=== PATIENT | female | born 1965 | race Caucasian/White ===

== ENCOUNTER 2019-09-30 09:49 | Outpatient (CLI) | payer BC, SELFPAY ==
[2019-09-30 10:06] LABS: Basophils Absolute Auto 0.05 K/mm3 (0.00-0.10); Basophils Percent Auto 0.5 % (0.0-1.0); Eosinophils Absolute Auto 0.11 K/mm3 (0.02-0.50); Eosinophils Percent Auto 1.1 % (1.0-6.0); Hematocrit 43.7 % (35.0-49.0); Hemoglobin 13.6 g/dL (12.0-15.0); Immature Granulocyte Absolute 0.04 K/mm3 (0.00-0.00); Immature Granulocyte Percent A 0.4 % (0.0-0.0); Lymphocytes Absolute Auto 1.34 K/mm3 (1.10-4.50); Lymphocytes Percent Auto 13.5 % (18.0-42.0); Mean Corpuscular HGB Conc 31.1 g/dL (32.0-36.0); Mean Corpuscular Hemoglobin 28.3 pg (27.0-31.0); Mean Platelet Volume 10.5 fl (9.2-11.8); Monocytes Absolute Auto 0.56 K/mm3 (0.10-0.90); Monocytes Percent Auto 5.6 % (2.0-11.0); Neutrophils Absolute Auto 7.8 K/mm3 (1.7-7.2); Neutrophils Percent Auto 78.9 % (50.0-70.0); Platelet Count Result 270 K/mm3 (150-420); Red Cell Distribution Width 14.3 % (11.6-14.4); White Blood Count 9.9 K/mm3 (4.8-10.8)
[2019-09-30 11:11] LABS: Anion Gap 13 mmol/L (8-16); Blood Urea Nitrogen 12 mg/dL (7-18); Calcium 9.3 mg/dL (8.5-10.1); Carbon Dioxide 24 mmol/L (21-32); Chloride 104 mmol/L (98-108); Estimated Glomerular Filt Rate > 60; Ferritin 239 ng/mL (8-252); Glucose 85 mg/dL (70-99); Iron 41 ug/dL (50-170); Osmolality Calculated 290 mOsm/kg (285-295); Percent Iron Saturation 15 % (12-57); Potassium 4.2 mmol/L (3.5-5.1); Sodium 141 mmol/L (136-145); Vitamin B12 542 pg/mL (193-986)
[2019-10-04 05:50] LABS: Prealbumin 19 mg/dL (17-34)
[2019-10-04 19:25] LABS: Vitamin D 25 Hydroxy 32 ng/mL (30-100)
[2019-10-05 13:27] LABS: Vitamin B1 23 nmol/L (8-30)
== END 2019-09-30 09:50 | disposition home or self-care (01) ==
PROVIDERS: PCP Internal Medicine
DX: E55.9 Vitamin D deficiency, unspecified (principal)
CPT/HCPCS: 36415; 80048; 82306; 82607; 82728; 83540; 83550; 84134; 84425; 85025

== ENCOUNTER 2019-11-24 10:02 | Outpatient (CLI) | payer BC, SELFPAY ==
[2019-11-24] MEDS: ONDANSETRON INJ 4 MG/2 ML VIAL IV PUSH (12:39)
[2019-11-24 12:54] VITALS: BP 124/67; PULSE 59; RESP 14; TEMP 36.5; O2SAT 98
--- NOTE | 2019-11-24 12:55 | PC.NURSE ---
1030 Here for 1 L fluids - Banana bag (see MAR). Patient is is 9 weeks s/p gastric sleeve and hiatial hernia repair. Saw surgeon/gastric MD yesterday and he wanted her to have fluids from being dehydrated. IV fluids administered as ordered. 1230 Patient reports not feeling much better. C/O mild nausea. Discuss all the B vitamins etc in the banana bag that could made her nauseated that there is a order Zofran as needed. Patient would like to have zofran. Zofran 4 mg IVP slowly given. Patient will like to sit in recliner for a little bit.
--- NOTE | 2019-11-24 13:16 | PC.NURSE ---
1315 Reports Carlos help a lot. IV dc'd. Patient safe exit to hospital.
== END 2019-11-24 10:03 | disposition home or self-care (01) ==
PROVIDERS: PCP Internal Medicine
DX: E86.0 Dehydration (principal)
CPT/HCPCS: 96360; 96361; 96374; 96375; J2405; J3411; J7030

== ENCOUNTER 2020-03-06 08:50 | Outpatient (CLI) | payer BC, SELFPAY ==
[2020-03-06 09:11] LABS: Hemoglobin A1C 5.1 % (<5.7)
[2020-03-06 10:22] LABS: Cholesterol 187 mg/dL (0-200); Ferritin 201 ng/mL (8-252); HDL Direct 62 mg/dL (40-60); Iron 49 ug/dL (50-170); LDL Cholesterol Calculated 101 mg/dL (<130); Percent Iron Saturation 18 % (12-57); Triglycerides 120 mg/dL (0-150)
[2020-03-11 12:05] LABS: Prealbumin 19 mg/dL (17-34)
== END 2020-03-06 08:51 | disposition home or self-care (01) ==
LOC: CHSLAB 08:52
PROVIDERS: PCP Internal Medicine
DX: Z98.84 Bariatric surgery status (principal); J44.9 Chronic obstructive pulmonary disease, unspecified; I10 Essential (primary) hypertension; E66.01 Morbid (severe) obesity due to excess calories; R73.03 Prediabetes; G47.33 Obstructive sleep apnea (adult) (pediatric); E55.9 Vitamin D deficiency, unspecified
CPT/HCPCS: 36415; 80061; 82728; 83036; 83540; 83550; 84134

== ENCOUNTER 2020-07-27 13:50 | Outpatient (CLI) | payer BC, SELFPAY ==
--- NOTE | ~2020-07-27 | US_ITS ---
EXAMINATION: US carotid duplex BI EXAM DATE: 07/27/2020 15:02 INDICATION: Left anterior neck pain. TECHNIQUE: Grayscale, color and pulsed Doppler images of the cervical carotid arteries were obtained . The degree of vessel stenosis is placed in one of the following categories: normal, <50% stenosis, 50-69% stenosis, >=70% stenosis but less than near-occlusion, near-occlusion, or occlusion. Note that percent stenosis relative to normal distal artery lumen diameter is indirectly measured from velocit y measurements as described by Pablo, et al. Radiology 2003; 229:340-346. There is no prior study fo r comparison. FINDINGS: No carotid dissection flap identified. RIGHT SIDE: Right common carotid artery peak systolic velocity (PSV in cm/s): 59 Right bulb/internal carotid artery peak systolic velocity (PSV in cm/s): 74 Right internal carotid artery end diastolic velocity (EDV in cm/s): 31 Right ICA/CCA peak systolic ratio: 1.2 Right external carotid artery peak systolic velocity (PSV in cm/s): 42 Right vertebral artery antegrade flow: yes There is mild carotid bulb plaque. Velocity and Doppler waveforms in the common and internal carotid arteries is normal. LEFT SIDE: Left common carotid artery peak systolic velocity (PSV in cm/s): 71 Left bulb/internal carotid artery peak systolic velocity (PSV in cm/s): 71 Left internal carotid artery end diastolic velocity (EDV in cm/s): 24 Left ICA/CCA peak systolic ratio: 1.0 Left external carotid artery peak systolic velocity (PSV in cm/s): 34 Left vertebral artery antegrade flow: yes There is mild carotid bulb plaque. Velocity and Doppler waveforms in the common and internal carotid arteries is normal. IMPRESSION: 1. Less than 50 percent stenosis in the right internal carotid artery. 2. Less than 50 percent stenosis in the left internal carotid artery. 3. No carotid dissection flap identified. > Reviewed, dictated and finalized at location B.
== END 2020-07-27 13:51 | disposition home or self-care (01) ==
LOC: CHSIMG 13:54
PROVIDERS: PCP Internal Medicine; Visit Provider Internal Medicine
DX: M54.2 Cervicalgia (principal)
CPT/HCPCS: 93880

== ENCOUNTER 2021-09-16 12:29 | Outpatient (CLI) | payer BC, SELFPAY ==
[2021-09-16 14:02] LABS: Ferritin 144 ng/mL (8-252); Folic Acid 4.6 ng/mL (8.6->20); Iron 36 ug/dL (50-170); Percent Iron Saturation 13 % (12-57)
[2021-09-19 20:17] LABS: Prealbumin 20 mg/dL (17-34)
[2021-09-20 06:49] LABS: Vitamin B1 7 nmol/L (8-30)
== END 2021-09-16 12:30 | disposition home or self-care (01) ==
LOC: CHSLAB 12:35
PROVIDERS: PCP Internal Medicine
DX: Z98.84 Bariatric surgery status (principal); K21.9 Gastro-esophageal reflux disease without esophagitis; E66.01 Morbid (severe) obesity due to excess calories; R73.03 Prediabetes; E55.9 Vitamin D deficiency, unspecified
CPT/HCPCS: 36415; 82525; 82728; 82746; 83540; 83550; 84134; 84425

== ENCOUNTER 2022-02-19 17:34 | Outpatient (CLI) | payer BC, SELFPAY ==
--- NOTE | ~2022-02-19 | XR_ITS ---
EXAMINATION: XR lumbar spine 2-3V DATE: 02/19/2022 17:55 INDICATION: Low back pain TECHNIQUE: Anteroposterior and lateral views of the lumbar spine, and cone-down lateral view of the l umbosacral junction were obtained. COMPARISON: 03/12/2015 FINDINGS: There are 3 mm of anterolisthesis of L4 on L5, new since the comparison examination. Alignm ent is otherwise maintained. There is mild loss of vertebral body height at L5, new since the compari son examination. There is mild loss of intervertebral disc space height and L3-4 and L5-S1. The verte bral body heights are maintained. Small degenerative osteophytes project from the anterior endplates of multiple vertebral bodies. There is moderate to severe facet joint osteoarthritis of the lower lum bar spine. Surgical clips in the right upper quadrant are likely from prior cholecystectomy. A surgic al anastomosis is noted in the left upper quadrant. There are phleboliths of the pelvis. IMPRESSION: 1. Mild to moderate lumbar spondylosis with interval worsening since the comparison examination. 2. Mild loss of vertebral body height at L5, new since the comparison examination. Reviewed, dictated and finalized at location L. F BANK EXAMINER IMPRESSION: 1. Mild to moderate lumbar spondylosis with interval worsening since the compar aguilar examination. 2. Mild loss of vertebral body height at L5, new since the comparison examinati on.
== END 2022-02-19 17:35 | disposition home or self-care (01) ==
LOC: CHSIMG 17:36
PROVIDERS: PCP Internal Medicine; Visit Provider Internal Medicine
DX: M54.50 Low back pain, unspecified (principal); M43.06 Spondylolysis, lumbar region
CPT/HCPCS: 72100

== ENCOUNTER 2022-03-01 08:27 | Outpatient (CLI) | payer BC, SELFPAY ==
--- NOTE | ~2022-03-01 | MR_ITS ---
EXAMINATION: MR lumbar spine wo con DATE: 03/01/2022 09:39 INDICATION: Back pain. TECHNIQUE: Magnetic resonance imaging (MRI) of the lumbar spine was performed without intravenous con trast. COMPARISON: Lumbar spine radiographs 02/19/2022 FINDINGS: There is 3 degrees levocurvature of thoracolumbar spine. There is a burst fracture of L5 wi th 1/5 loss of height, retropulsion of bone 3 mm into central spinal canal, and edema-like marrow sig nal intensity. Intervertebral disc heights are normal. The distal spinal cord signal intensity is nor mal. The conus medullaris is at L1. The following disc levels are specifically discussed: L1-L2: There is a central protrusion. There is mild bilateral facet joint osteoarthritis. There is no neural foraminal stenosis. There is mild central canal stenosis. L2-L3: The disc is bulging. There is mild bilateral facet joint osteoarthritis. There is mild bilater al neural foraminal stenosis. There is no central canal stenosis. L3-L4: The disc is bulging. There is moderate bilateral facet joint osteoarthritis. There is mild jayleen ateral neural foraminal stenosis. There is mild central canal stenosis. L4-L5: The disc does not extend beyond the endplate margin. There is severe bilateral facet joint ost eoarthritis. There is mild left neural foraminal stenosis. There is mild central canal stenosis. L5-S1: The disc does not extend beyond the endplate margin. There is ankylosis of the facet joints wi th mild hypertrophy. There is no neural foraminal stenosis. There is no central canal stenosis. IMPRESSION: 1. Subacute L5 burst fracture, stable from 02/19/2022. 2. Mild lumbar spondylosis. Reviewed, dictated and finalized at location A. NIZER
== END 2022-03-01 08:28 | disposition home or self-care (01) ==
LOC: CHSIMG 08:28
PROVIDERS: PCP Internal Medicine; Visit Provider Internal Medicine
DX: M54.50 Low back pain, unspecified (principal); S32.051A Stable burst fracture of fifth lumbar vertebra, initial encounter for closed fracture; M43.06 Spondylolysis, lumbar region
CPT/HCPCS: 72148

== ENCOUNTER 2022-08-11 15:22 | Outpatient (CLI) | payer BC, SELFPAY ==
--- NOTE | ~2022-08-11 | XR_ITS ---
XR knee LT 3V DATE: 08/11/2022 15:53 INDICATION: Left knee pain for one week. No injury. TECHNIQUE: AP, lateral sunrise views COMPARISON: None FINDINGS: There is tricompartment osteophyte is, most severe at the patellofemoral and lateral compar tments. There is [id number] at the lateral compartment. There is periarticular spurring at all 3 co mpartments, particularly severe at the patellofemoral compartment, also prominent at the lateral comp artment. There is osteopenia. No fracture or dislocation, periosteal reaction or bone destruction, radiopaque intra-articular loose body or chondrocalcinosis is noted. Mild suprapatellar knee joint effusion. Mild varus deformity IMPRESSION: Tricompartment osteophytes, particularly severe at the lateral and patellofemoral compart ments Mild knee joint effusion Osteopenia Reviewed, dictated and finalized at location A. IMPRESSION: Tricompartment osteophytes, particularly severe at the lateral and patellofemoral compartments Mild knee joint effusion Osteopenia
== END 2022-08-11 15:23 | disposition home or self-care (01) ==
LOC: CHSIMG 15:25
PROVIDERS: PCP Internal Medicine; Visit Provider Internal Medicine
DX: M25.562 Pain in left knee (principal); M25.762 Osteophyte, left knee; M25.462 Effusion, left knee; M85.862 Other specified disorders of bone density and structure, left lower leg
CPT/HCPCS: 73562

== ENCOUNTER 2024-08-19 12:51 | Outpatient (CLI) | payer OTHER, SELFPAY ==
--- OUTSIDE RECORDS SUMMARY | 2024-08-19 13:00 | XMS_ITS | Encounter Summary ---
Author Organization [facility] Address [facility] [place] [address] Care Team Providers Care Paper Cone Grader Name Role Phone Fernando Snider MD Primary Care Provider [phone] Chauncey Johnson MD Unavailable [phone] Chandu Matthews DO, George V Unavailable [phone] Chandu Matthews DO, George V Unavailable [phone] Encounter Details Date Type Department Care Team (Late st Contact Info) Description 07/17/2018 Abstract [facility] CONVERSION [address] [place] [address] , Generic Conversion, Social History Tobacco Use Types Packs/Day Years Used Date Smoking Tobacco: Never Assessed Comments Unknown Sex and Gender Information Value Date Recorded Sex Assigned at Female 03/03/2024 1:36 PM DRESS CUTTER Legal Sex Female 4:45 PM CDT Gender Identity Not on file Sexual Orientation Not on file documented as of this encounter Plan of Treatment Upcoming Encounters Date Type Department Care Team (Late Contact Info) Description 08/23/2024 9:15 AM CDT Appointment [facility] [address] [place] [address] Kar uYn, PT [address] [place], [place] [id number] Rashi Schofield Jr., DO [address] [place] [address] Reema Alfred PTA 08/25/2024 9:30 AM CDT Appointment [facility] [address] [place] [address] Kar Yun, PT [address] [place] [address] Rashi Schofield Jr., DO [address] [place] [address] 01/17/2025 9:30 AM DRESS CUTTER Office Visit [facility] [place] [address] Chauncey Johnson MD [address] [address] documented as of this encounter Visit Diagnoses Not on filedocumented in this encounter Care Teams Paper Cone Grader Relationship Specialty Start Date End Date Fernando Snider MD [address] [place] [phone] PCP - General INTERNAL MEDICINE 08/04/18 Chauncey Johnson MD [address] [id number] Physician INTERVENTIONAL CARDIOLOGY 01/06/24 Rashi Schofield Jr., DO [address] [place] [address] Physician ORTHOPAEDIC SURGERY 01/08/24 Rashi Schofield Jr., DO [address] [place] [phone] Physician ORTHOPAEDIC SURGERY 01/15/24 documented as of this encounter
--- OUTSIDE RECORDS SUMMARY | 2024-08-19 13:01 | XMS_ITS | Encounter Summary ---
Author Organization [facility] Address [facility] [place] [address] Care Team Providers Care Batch Unloader Name Role Phone Fernando Snider MD Primary Care Provider [phone] Chauncey Johnson MD Unavailable [phone] Chandu Matthews DO, George V Unavailable [phone] Chandu Matthews DO, George V Unavailable [phone] Encounter Details Date Type Department Care Team (Late st Contact Info) Description 05/02/2022 [facility] Message Enc [facility] [address] [place] [address] Jarvis Jameson III, MD [address] [place] [address] Visit Follow Up Social History Tobacco Use Types Packs/Day Years Used Date Smoking Tobacco: Every Day Cigarettes Alcohol Use Standard Drinks/Week Comments Yes 0 (1 standard drink = 0.6 oz pur e alcohol) ocasionally AUDIT-C Answer Date Recorded Frequency of Alcohol Consumption Never 08/04/2018 Average Number of Drinks Not on file 019 Frequency of Binge Drinking Not on file 07/11 Comments Unknown Sex and Gender Information Value Date Recorded Sex Assigned at Female 03/03/2024 1:36 PM ATHLETIC SCOUT Legal Sex Female 4:45 PM CDT Gender Identity Not on file Sexual Orientation Not on file COVID-19 Exposure Response Date Recorded In the last 10 days, have yo u been in contact with someone who was confirmed or suspected to have Coronavirus/COVID-19? No / Unsure 05/02/2022 8:14 AM CDT documented as of this encounter Plan of Treatment Upcoming Encounters Date Type Department Care Team (Late st Contact Info) Description 08/23/2024 9:15 AM CDT Appointment [facility] [address] [place] [address] Kar Yun, PT [address] [place] [address] Rashi Schofield Jr., DO [address] [place] [address] Reema Alfred, JANA 08/25/2024 9:30 AM CDT Appointment [facility] [address] [place] [address] Kar Yun, PT [address] [place] [address] Rashi Schofield Jr., DO [address] [place] [address] 01/17/2025 9:30 AM ATHLETIC SCOUT Office Visit [facility] [place] [address] Chauncey Johnson MD [id number] [place] [address] documented as of this encounter Visit Diagnoses Not on filedocumented in this encounter Care Teams Batch Unloader Relationship Specialty Start Date End Date Fernando Snider MD [address] [place] [phone] PCP - General INTERNAL MEDICINE 08/04/18 Chauncey Johnson MD [address] [facility] [address] [place] [address] Physician INTERVENTIONAL CARDIOLOGY 01/06/24 Rashi Schofield Jr., [address] [place] [address] Physician ORTHOPAEDIC SURGERY 01/08/24 Rashi Schofield Jr., [address] [place] [phone] Physician ORTHOPAEDIC SURGERY 01/15/24 documented as of this encounter
--- OUTSIDE RECORDS SUMMARY | 2024-08-19 13:01 | XMS_ITS | Clinical Summary ---
Author Organization [facility] Address [address] [place] [address] Care Team Providers Care Sales Operations Specialist Name Role Phone Fernando Snider MD Primary Care Provider [phone] Chauncey Johnson MD Unavailable [phone] Chandu Matthews DO, George V Unavailable [phone] Chandu Matthews DO, George V Unavailable [phone] Allergies Active Allergy Reactions Criticality Noted Date Comments Cephalexin Anaphylaxis High 06/05/2017 Penicillins Anaphylaxis High 06/05/2017 Topiramate Other (see comment) 01/06/2024 Taste perception alteration Medications diphenhydrAMIN E (BENADRYL) 25 MG tabletIndicati ons:Itching Take 1 tablet (25 mg total) by mouth as needed for Itching. Indications: Itching 8 Active vitamin C (ASCORBIC ACID) 1000 MG tabletIndicati ons:Supplement Take 1 tablet (1,000 mg total) by mouth daily. Indications: Supplement Active vitamin B-12 (CYANOCOBALAMI N) (CYANOCOBALAMI N) 1000 mcg tabletIndicati ons:Supplement Take 1 tablet (1,000 mcg total) by mouth once a week. Indications: Supplement 5 Active ferrous gluconate (FERGON) 324 (37.5 Fe) MG tabletIndicati ons:Anemia Take 1 tablet (324 mg total) by mouth daily with breakfast. Indications: Anemia Active albuterol sulfate HFA 108 (90 Base) MCG/ACT inhalerIndicat ions:Wheezing Inhale 2 puffs into the lungs every 4 (four) hours as needed. Indications: Wheezing 3 Active acetaminophen (TYLENOL) 500 MG tabletIndicati ons:Pain Take 1 tablet (500 mg total) by mouth daily as needed for Pain. Indications: Pain 3 Active calcium carbonate-stella min D (OSCAL + D) 500-5 MG-MCG Tab tabletIndicati ons:Vitamin and/or Mineral Deficiency Take 1 tablet by mouth 2 (two) times daily. Indications: Vitamin and/or Mineral Deficiency 4 Active vitamin D3 (CHOLECALCIFER OL) 25 mcg tabletIndicati ons:Nutritiona l Support Take 2 tablets (50 mcg total) by mouth daily. Indications: Nutritional Support Active buPROPion SR (WELLBUTRIN SR) 150 MG 12 hr tabletIndicati ons:Nicotine Dependence Take 1 tablet (150 mg total) by mouth 2 (two) times daily. Indications: Nicotine Addiction Active cyclobenzaprin e (FLEXERIL) 10 MG tabletIndicati ons:Muscle Cramps Take 1 tablet (10 mg total) by mouth 3 (three) times daily as needed for Muscle Spasms. Indications: Muscle Cramps 30 tablet 5 Active oxybutynin XL (DITROPAN-XL) 5 MG 24 hr tablet Take 1 tablet (5 mg total) by mouth daily. 5 Active vitamin, low iron, 27-0.8 MG tabletIndicati ons:Nutritiona l Support Take 1 tablet by mouth daily. Indications: Nutritional Support 025 Discontinu ed(Therapy completed) HYDROcodone-ac etaminophen (NORCO) 5-325 MG tabletIndicati ons:Chronic Pain Take 1 tablet by mouth every 8 (eight) hours as needed for Pain. Indications: Chronic Pain 30 tablet 5 025 Discontinu ed(Therapy completed) sulfamethoxazo le-trimethopri m (BACTRIM DS) 800-160 MG tabletIndicati ons:Superficia l incisional infection of surgical site Take 1 tablet by mouth 2 (two) times daily for 14 days. 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/06/2020 Heavy cigarette smoker (20-39 per day) 9 Onychomycosis 02/25/2018 Resolved Problems Problem Noted Date Diagnosed Date Resolved Date Follow-up examination after orthopedic surgery 08/01/2023 08/01/2024 Hip fracture ([facility]) 11/10/2022 11/10/2022 Need for home exercise program 02/06/2020 02/13/2020 Encounters Date Type Department Care Team Description 08/18/2024 1:45 PM CDT Hospital Encounter [facility] [address] [place] [address] Kar Yun, PT Rashi Schofield Jr., DO Knee Pain 08/18/2024 Travel 08/16/2024 4:08 PM CDT - 08/16/2024 11:59 PM CDT Hospital Encounter [facility] [address] [place] [phone] Kar Yun, PT Rashi Schofield Jr., DO Reema Alfred, SCAFFOLD BUILDER Knee Pain Discharge Disposition: Home or Self Care (Routine Discharge) 08/16/2024 Travel 08/11/2024 2:22 PM CDT - 08/11/2024 11:59 PM CDT Hospital Encounter [facility] [address] [place] [phone] Kar Yun, Rashi Talbert Jr., DO Jnt Pain/Knee Discharge Disposition: Home or Self Care (Routine Discharge) 08/11/2024 Travel 08/09/2024 12:54 PM CDT - 08/09/2024 11:59 PM CDT Hospital Encounter [facility] [address] [place] [phone] Kar Yun, PT Rashi Schofield Jr., Reema Shaffer, SCAFFOLD BUILDER Knee Pain Discharge Disposition: Home or Self Care (Routine Discharge) 08/09/2024 Travel 08/05/2024 12:52 PM CDT - 08/05/2024 11:59 PM CDT Hospital Encounter [facility] [address] [place] [phone] Kar Yun, PT Rashi Schofield Jr., Reema Shaffer, SCAFFOLD BUILDER Knee Pain Discharge Disposition: Home or Self Care (Routine Discharge) 08/05/2024 Telephone [facility] [address] [place] [address] Chauncey Johnson MD Appointment Request 08/04/2024 2:16 PM CDT - 08/04/2024 11:59 PM CDT Hospital Encounter [address] [place] [address] Krystyna Bullock, VETERINARY MANAGER Discharge Disposition: Home or Self Care (Routine Discharge) 08/04/2024 Travel 08/01/2024 4:21 PM CDT - 08/01/2024 11:59 PM CDT Hospital Encounter [facility] [address] [place] [phone] Kar Yun, Rashi Talbert Jr., Elder Mary, SCAFFOLD BUILDER Knee Pain Discharge Disposition: Home or Self Care (Routine Discharge) 08/01/2024 Travel 07/26/2024 11:00 AM CDT Office Visit [facility] [address], [facility] [address] [place] [address] Hanna Morel, HEALTH ANALYTICS CONSULTANT- Follow Up (DOS 02/15/24 Hardware removal with LEFT total knee arthroplasty with distal femur replacement))/ /) 07/26/2024 9:15 AM CDT - 07/26/2024 11:59 PM CDT Hospital Encounter [facility] [address] [place] [phone] Kar Yun, PT Rashi Schofield Jr., DO Jnt Pain/Knee Discharge Disposition: Home or Self Care (Routine Discharge) 07/26/2024 Travel 07/20/2024 4:49 PM CDT - 07/20/2024 11:59 PM CDT Hospital Encounter [facility] [address] [place] [phone] Kar Yun, Rashi Talbert Jr., DO Jnt Pain/Knee Discharge Disposition: Home or Self Care (Routine Discharge) 07/20/2024 Travel 07/18/2024 4:40 PM CDT - 07/18/2024 11:59 PM CDT Hospital Encounter [facility] [address] [place] [phone] Kar Yun, Rashi Talbert Jr., Ney Leung, SCAFFOLD BUILDER Total Knee Arth Discharge Disposition: Home or Self Care (Routine Discharge) 07/18/2024 Travel 07/14/2024 9:51 AM CDT - 07/14/2024 11:59 PM CDT Hospital Encounter [facility] [address] [place] [phone] Kar Yun, Rashi Talbert Jr., DO Knee Pain Discharge Disposition: Home or Self Care (Routine Discharge) 07/14/2024 Travel 07/12/2024 11:12 AM CDT - 07/12/2024 11:59 PM CDT Hospital Encounter [facility] [address] [place] [phone] Kar Yun, PT Rashi Schofield Jr., Ney Leung, SCAFFOLD BUILDER Jnt Pain/Knee Discharge Disposition: Home or Self Care (Routine Discharge) 07/12/2024 Travel 07/07/2024 2:28 PM CDT - 07/07/2024 11:59 PM CDT Hospital Encounter [facility] [address] [place] [phone] Kar Yun, PT Rashi Schofield Jr., Reema Shaffer, SCAFFOLD BUILDER Knee Pain Discharge Disposition: Home or Self Care (Routine Discharge) 07/07/2024 Telephone [facility] [address] [facility] [address] [place] [address] Rashi Schofield Jr., DO Question (Knee wound) 07/07/2024 Travel 07/05/2024 4:41 PM CDT - 07/05/2024 11:59 PM CDT Hospital Encounter [facility] [address] [place] [address] Kar Yun, PT Rashi Schofield Jr., Reema Shaffer, SCAFFOLD BUILDER Knee Pain Discharge Disposition: Home or Self Care (Routine Discharge) 07/05/2024 Travel 06/30/2024 11:19 AM CDT - 06/30/2024 11:59 PM CDT Hospital Encounter [facility] [address] [place] [address] Kar Yun, Rashi Talbert Jr., DO Jnt Pain/Knee Discharge Disposition: Home or Self Care (Routine Discharge) 06/30/2024 Telephone [place] [id number] [address] [address] Hanna Morel, HEALTH ANALYTICS CONSULTANT- Medication Request 06/30/2024 Travel 06/28/2024 11:15 AM CDT - 06/28/2024 11:59 PM CDT Hospital Encounter [facility] [address] [place] [phone] Kar Yun, PT Rashi Schofield Jr., Ney Leung, SCAFFOLD BUILDER Total Knee Arth Discharge Disposition: Home or Self Care (Routine Discharge) 06/28/2024 Travel 06/24/2024 1:07 PM CDT - 06/24/2024 11:59 PM CDT Hospital Encounter [facility] [address] [place] [phone] Kar Yun, PT Rashi Schofield Jr., Annie Og, SCAFFOLD BUILDER Jnt Pain/Knee Discharge Disposition: Home or Self Care (Routine Discharge) 06/24/2024 Travel 06/21/2024 11:24 AM CDT - 06/21/2024 11:59 PM CDT Hospital Encounter [facility] [address] [place] [phone] Kar Yun, PT Rashi Schofield Jr., DO Jnt Pain/Knee Discharge Disposition: Home or Self Care (Routine Discharge) 06/21/2024 Travel 06/16/2024 11:25 AM CDT - 06/16/2024 11:59 PM CDT Hospital Encounter [facility] [address] [place] [phone] Kar Yun, PT Rashi Schofield Jr., Reema Shaffer, SCAFFOLD BUILDER Knee Pain Discharge Disposition: Home or Self Care (Routine Discharge) 06/16/2024 Travel 06/14/2024 11:22 AM CDT - 06/14/2024 11:59 PM CDT Hospital Encounter [facility] [address] [place] [phone] Kar Yun, Rashi Talbert Jr., Reema Shaffer, SCAFFOLD BUILDER Knee Pain Discharge Disposition: Home or Self Care (Routine Discharge) 06/14/2024 Travel 06/10/2024 1:40 PM CDT - 06/10/2024 11:59 PM CDT Hospital Encounter [facility] [address] [place] [phone] Kar Yun, Rashi Talbert Jr., Reema Shaffer, SCAFFOLD BUILDER Knee Pain Discharge Disposition: Home or Self Care (Routine Discharge) 06/10/2024 Travel 06/07/2024 4:05 PM CDT - 06/07/2024 11:59 PM CDT Hospital Encounter [facility] [address] [place] [phone] Kar Yun, PT Rashi Schofield Jr., Reema Shaffer, SCAFFOLD BUILDER Knee Pain Discharge Disposition: Home or Self Care (Routine Discharge) 06/07/2024 Travel 05/31/2024 2:58 PM CDT - 05/31/2024 11:59 PM CDT Hospital Encounter [facility] [address] [place] [address] Kar Yun, PT Rashi Schofield Jr., Reema Shaffer, JANA Knee Pain Discharge Disposition: Home or Self Care (Routine Discharge) 05/31/2024 Travel from Last 3 Months Family History Medical History Relation Comments Heart Disease Father Heart Disease Mother Relation Status Comments Brother Alive Father Mother Alive Social History Tobacco Use Types Packs/Day Years Used Date Smoking Tobacco: Every Day Cigarettes Smokeless Tobacco: Never Tobacco Cessation:Ready to Q uit: Not Asked; Counseling Given: Not Answered Alcohol Use Standard Drinks/Week Comments Yes 5 (1 standard drink = 0.6 oz pur e alcohol) ocasionally -every 2 weeks OASIS D0700: Social Isolation Answer Da te Recorded Frequency of experiencing loneliness or isolatio n Never 04/12/2024 OASIS A1250: Transportation Answer Date Recorded Lack of Transportation (Medical) No 04/12/2024 Lack of Transportation (Non-Medical) No 04/12/2024 Patient Unable or Declines to Respond No 04/12/2024 OASIS B1300: Health Literacy Answer Lincoln e Recorded Frequency of needing help to read materials from doctor or pharmacy Never 04/12/2024 [facility] Utilities Answer Date Recorded In the past 12 months has e [facility], gas, oil, or water [employer] threatened to shut off services in your home? No 06/11/2023 Humiliation, Afraid, Rape, and Kick questionnair e Answer Date Recorded Within the last year, have y ou been afraid of your partner or ex-partner? No 06/11/2023 Within the last year, have y ou been humiliated or emotionally abused in other ways by your partner or ex-partner? No Within the last year, have y ou been kicked, hit, slapped, or otherwise physically hurt by your partner or ex-partner? No 06/11/2023 Within the last year, have y ou been raped or forced to have any kind of sexual activity by your partner or ex-partner? No 06/11/2023 AUDIT-C Answer Date Recorded Frequency of Alcohol Consumption Never 08/04/2018 Average Number of Drinks Not on file 019 Frequency of Binge Drinking Not on file 07/11 Overall Financial Resource Strain (CARDIA) Answe r Date Recorded How hard is it for you to pa y for the very basics like food, housing, medical care, and heating? Not hard at all 06/11/2023 Hunger Vital Sign Answer Date Recorded Within the past 12 months, y ou worried that your food would run out before you got the money to buy more. Never true 06/11/19 24 Within the past 12 months, t he food you bought just didn't last and you didn't have money to get more. Never true 06/11/2023 PRAPARE - Transportation Answer Date Re corded In the past 12 months, has l ack of transportation kept you from medical appointments or from getting medications? No 03/2023 In the past 12 months, has l ack of transportation kept you from meetings, work, or from getting things needed for daily living? No 06/11/2023 Housing Stability Vital Sign Answer Lincoln e Recorded In the last 12 months, was t here a time when you were not able to pay the mortgage or rent on time? No 11/10/2022 In the last 12 months, how many places have you lived? 1 11/10/2022 In the last 12 months, was t here a time when you did not have a steady place to sleep or slept in a care home (including now)? No 11/10/2022 Housing Stability Vital Sign Answer Lincoln e Recorded In the last 12 months, was t here a time when you were not able to pay the mortgage or rent on time? No 06/11/2023 In the past 12 months, how m any times have you moved where you were living? 1 06/11/2023 At any time in the past 12 m [facility], were you homeless or living in a care home (including now)? No 06/11/2023 Comments No Sex and Gender Information Value Date Recorded Sex Assigned at Female 03/03/2024 1:36 PM FARM ASSISTANT Legal Sex Female 4:45 PM CDT Gender Identity Not on file Sexual Orientation Not on file Last Filed Vital Signs Vital Sign Reading Time Taken Comments Blood Pressure 140/82 04/12/2024 9:31 AM FARM ASSISTANT Pulse 72 04/12/2024 9:31 AM FARM ASSISTANT Temperature 36.4 C (97.6 F) 04/08/2024 2:53 PM FARM ASSISTANT Respiratory Rate 18 04/08/2024 2:53 PM FARM ASSISTANT Oxygen Saturation 97% 04/12/2024 9:31 AM FARM ASSISTANT Inhaled Oxygen Concentration - - Weight 95.7 kg (211 lb) 07/26/2024 10:15 AM CDT Height 157.5 cm (5' 2) 07/26/2024 10:15 AM CDT Body Mass Index 38.59 07/26/2024 10:15 AM CDT Plan of Treatment Upcoming Encounters Date Type Department Care Team (Late st Contact Info) Description 08/23/2024 9:15 AM CDT Appointment [facility] [address] [place] [address] Kar Yun, PT [address] [place] [address] Rashi Schofield Jr., DO [address] [place] [address] Reema Alfred PTA 08/25/2024 9:30 AM CDT Appointment [facility] [address] [place] [address] Kar Yun, PT [address] [place] [address] Rashi Schofield Jr., DO [address] [place] [phone] 01/17/2025 9:30 AM FARM ASSISTANT Office Visit [facility] [address] [place] [phone] Chauncey Johnson MD [address] [facility] [address] [place] [address] Health Maintenance Due Date Last Done Comments Colorectal Cancer Screening Colonoscopy (10 Years) 1964 Annual Physical 08/09/1967 Hepatitis C 1982 DTaP, Tdap and Td Vaccines ( 1 - Tdap) 08/09/1983 Zoster Vaccines (1 of 2) 2014 Pneumococcal Vaccine: 50+ Ye ars (2 of 2 - PPSV23) 01/25/2018 11/30/2017 COVID-19 Vaccine (2 - 2023-2 5 season) 2023 01/09/2021 Mammogram Screening 08/04/2026 08/04/2024 RSV Immunization or 60+ Years (1 - 1-dose 75+ series) 08/09/2039 Meningococcal B Vaccine Aged Out No l onger eligible based on patient's age to complete this topic Meningococcal Vaccine Aged Out No bib santi eligible based on patient's age to complete this topic RSV Immunizations Under 20 Months Aged Out No longer eligible based on patient's age to complete this topic Medical Devices Implanted Type Area Primary Operator Device Identifier Shelf Expiration Date Model / Serial / Lot 4.5 X 38mm Nl Screw Implanted:Qty: 1 on 11/10/2022 by Abdulkadir Gary MD at [facility] Left: Femur [employer] / / [id number] X 36mm L Screw Implanted:Qty: 3 on 11/10/2022 by Abdulkadir Gary MD at [facility] Left: Femur [employer] / / [id number] X 70mm L Screw Implanted:Qty: 1 on 11/10/2022 by Abdulkadir Gary MD at [facility] Left: Femur [employer] / / [id number] X 65mm Nl Screw Implanted:Qty: 1 on 11/10/2022 by Abdulkadir Gary MD at [facility] Left: Femur [employer] / / [id number] Left 10-Hole Distal Femur Plate Implanted:Qty: 1 on 11/10/2022 by Abdulkadir Gary MD at [facility] Left: Femur [employer] / / [id number] 4.5 X 36mm Nl Screw Implanted:Qty: 1 on 11/10/2022 by Abdulkadir Gary MD at [facility] Left: Femur / / [id number] X 65mm L Screw Implanted:Qty: 2 on 11/10/2022 by Abdulkadir Gary MD at [facility] Left: Femur [employer] / / [id number] X 60mm L Screw Implanted:Qty: 1 on 11/10/2022 by Abdulkadir Gary MD at [facility] Left: Femur [employer] / / [id number] X 34mm L Screw Implanted:Qty: 3 on 11/10/2022 by Abdulkadir Gary MD at [facility] Left: Femur [employer] / / [id number] [employer] 2 Tissue Source: Access [employer] Implanted:Qty: 1 on 06/11/2023 by Abdulkadir Gary MD at [facility] [employer] 12/09/2024 ABS-2016-0 2 / / [id number] Arthrocell Plus Allograft Implanted:Qty: 1 on 06/11/2023 by Abdulkadir Gary MD at [facility] [employer] 05/29/2024 ABS-2089-1 0 / / [id number] Ar[employer] Plus Allograft Implanted:Qty: 1 on 06/11/2023 by Abdulkadir Gary MD at [facility] [employer] 01/24/2024 ABS-2089- 0 / / [id number] Explanted Type Area Primary Operator Device Identifier Shelf Expiration Date Model / Serial / Lot 3.2 X 216 Drill Bit Explanted:Qty: 1 on 11/10/2022 by Abdulkadir Gary MD at [facility] Left: Femur [employer] / / [id number] 4.3 X 216mm Drill Bit Explanted:Qty: 1 on 11/10/2022 by Abdulkadir Gary MD at [facility] Left: Femur [employer] / / [id number] X 55mm Ft Cancellous Screw Explanted:Qty: 1 on 11/10/2022 by Abdulkadir Gary MD at [facility] Left: Femur [employer] / / [id number] X 65mm Ft Cancellous Screw Explanted:Qty: 1 on 11/10/2022 by Abdulkadir Gary MD at [facility] Left: Femur [employer] / / [id number] Procedures Procedure Name Priority Date/Time Associated Diagnosis Comments MG SCREENING W RHONDA STEFANY DIGI Routine 08/04/2024 3:09 PM CDT Visit for screening mammogram BONE DENSITY/DEXA Routine 08/04/2024 3:0 3 PM CDT Visit for screening mammogram from Last 3 Months Results * MG SCREENING W RHONDA STEFANY DIGI (08/04/2024 3:09 PM CDT) Anatomical Region Laterality Modality Breast Bilateral Mammography 08/04/2024 4:41 PM CDT Impressions 08/04/2024 4:42 PM CDT IMPRESSION: No mammographic evidence of malignancy. Recommendation: 1: Routine Screening Bilateral in 1 Year Assessment: ACR BI-RADS 2 - BENIGN FINDING(S) Ordered By: KRYSTYNA BULLOCK Interpreted By: Juan Sebastian MD, 08/04/2024 4:41 PM Narrative 08/04/2024 4:42 PM CDT [address] [place] [address] Examination: Digital screening mammogram with CAD. Clinical history: Asymptomatic patient presents for routine screening. New baseline. Comparison: None available. Technique: Bilateral digital mammograms. The exam was interpreted with the use of a computer-aided detection (CAD) system. Additional 3-D tomosynthesis images were acquired. Tissue density: There are scattered areas of fibroglandular density. Findings: The breast tissue contains scattered fibroglandular densities. Benign-appearing calcification noted. No suspicious mass, microcalcification or area of architectural distortion can be identified. From a mammographic standpoint, routine followup in one year would seem adequate. us Krystyna Bullock VETERINARY MANAGER MAMMO Final Result * BONE DENSITY/DEXA (08/04/2024 3:03 PM CDT) Anatomical Region Laterality Modality Bone Bone Density 08/04/2024 4:44 PM CDT Impressions 08/04/2024 4:45 PM CDT Impression: 1. Consistent with osteopenia in the lumbar spine. 2. Consistent with osteoporosis in the right hip. Ordered By: KRYSTYNA BULLOCK Interpreted By: Juan Sebastian MD, 08/04/2024 4:44 PM Narrative 08/04/2024 4:45 PM CDT [address] [place] [address] Examination: DEXA Bone densitometry Clinical history: Postmenopausal. Osteoporosis screening. History of left knee arthroplasty with long stem femoral component. Comparison: None. Technique: DEXA bone mineral density evaluation was performed in the AP projection over the lumbar spine and over the right hip in the AP projection utilizing standard imaging techniques. Assessment: The BMD measured at the AP spine L1-L4 is 0.892 g/cm2 with a T-score of -1.4 and a Z-score of 0.0. The patient is considered osteopenic according to World Health Organization (WHO) criteria. Bone density is between 10 and 25% below young normal. Fracture risk is moderate. Treatment is advised. The BMD measured at the femoral neck right is 0.564 g/cm2 with a T-score of -2.6 and a Z-score of -1.3. This patient is considered osteoporotic according to the world health organizations (WHO) criteria. Fracture risk is high. Pharmacological treatment, if not already prescribed should be considered. If pharmacological treatment is utilized, a followup bone density is recommended in one year to monitor response to therapy. FRAX 10-year fracture risk: Major Osteoporotic Fracture: 11%. Hip Fracture: 2.9%. Recommendations: All patients should ensure an adequate intake of dietary calcium and vitamin D. The NOF recommend adults under the age of 50 need 1000 mg of calcium and 400-800 IU of vitamin D daily. Effective therapy for the prevention and treatment of osteoporosis include biphosphonates. Follow-up: People with diagnosed cases of osteoporosis or at high risk for fracture should have regular bone mineral density test. For patients eligible for Medicare, routine testing is allowed once every 2 years. Testing frequency can be increased to one year for patients who have rapidly progressing disease, those who are receiving or discontinuing medical therapy to restore bone mass, or have additional risk factors. Based on these results, a followup exam is recommended in 1-2 years. Procedure Note Juan Sebastian MD - 08/04/[address] [place] [address] Examination: DEXA Bone densitometry Clinical history: Postmenopausal. Osteoporosis screening. History of leftknee arthroplasty with long stem femoral component. Comparison: None. Technique: DEXA bone mineral density evaluation was performed in the APprojection over the lumbar spine and over the right hip in the APprojection utilizing standard imaging techniques. Assessment: The BMD measured at the AP spine L1-L4 is 0.892 g/cm2 with a T-score of-1.4 and a Z-score of 0.0. The patient is considered osteopenicaccording to World Health Organization (WHO) criteria. Bone density isbetween 10 and 25% below young normal. Fracture risk is moderate.Treatment is advised. The BMD measured at the femoral neck right is 0.564 g/cm2 with a T-scoreof -2.6 and a Z-score of -1.3. This patient is considered osteoporoticaccording to the world health organizations (WHO) criteria. Fracture riskis high. Pharmacological treatment, if not already prescribed should beconsidered. If pharmacological treatment is utilized, a followup bonedensity is recommended in one year to monitor response to therapy. FRAX 10-year fracture risk: Major Osteoporotic Fracture: 11%. Hip Fracture: 2.9%. Recommendations: All patients should ensure an adequate intake of dietary calcium andvitamin D. The NOF recommend adults under the age of 50 need 1000 mg ofcalcium and 400-800 IU of vitamin D daily. Effective therapy for theprevention and treatment of osteoporosis include biphosphonates. Follow-up: People with diagnosed cases of osteoporosis or at high risk for fractureshould have regular bone mineral density test. For patients eligible forMedicare, routine testing is allowed once every 2 years. Testing frequencycan be increased to one year for patients who have rapidly progressingdisease, those who are receiving or discontinuing medical therapy torestore bone mass, or have additional risk factors. Based on these results, a followup exam is recommended in 1-2 years. Impression: 1. Consistent with osteopenia in the lumbar spine. 2. Consistent with osteoporosis in the right hip. Ordered By: KRYSTYNA BULLOCK Interpreted By: Juan Sebastian MD, 08/04/2024 4:44 PM Krystyna Bullock VETERINARY MANAGER DEXA Final Result from Last 3 Months Insurance [employer] Advance Directives * Full Code (Latest Code Status on File) Date Activated Date Inactivated Comments 03/21/2024 4:25 PM * Full Code Date Activated Date Inactivated Comments 03/20/2024 10:58 AM 03/21/2024 3:55 PM * Full Code Date Activated Date Inactivated Comments 02/23/2024 4:28 PM 02/24/2024 9:21 AM * Full Code Date Activated Date Inactivated Comments 06/11/2023 1:25 PM 06/12/2023 2:28 PM * Full Code Date Activated Date Inactivated Comments 02/25/2023 11:46 AM 06/11/2023 8:58 AM Care Teams Sales Operations Specialist Relationship Specialty Start Date End Date Fernando Snider MD [address] [place] [address] PCP - General INTERNAL MEDICINE 08/04/18 Chauncey Johnson MD [address] [facility] [address] [place] [address] Physician INTERVENTIONAL CARDIOLOGY 01/06/24 Rashi Schofield Jr., DO [address] [place] [address] Physician ORTHOPAEDIC SURGERY 01/08/24 Rashi Schofield Jr., DO [address] [place] [address] Physician ORTHOPAEDIC SURGERY 01/15/24
--- OUTSIDE RECORDS SUMMARY | 2024-08-19 13:01 | XMS_ITS | Encounter Summary ---
Author Organization [facility] Address [facility] [place] [address] Care Team Providers Care University Administrator Name Role Phone Fernando Snider MD Primary Care Provider [phone] Chauncey Johnson MD Unavailable [phone] Chandu Matthews DO, George V Unavailable [phone] Chandu Matthews DO, George V Unavailable [phone] Encounter Details Date Type Department Care Team (Late st Contact Info) Description 12/02/2022 NitroSell Message Enc [facility] [address] [place] [address], [place] [address] Abdulkadir Gary MD [address] [place] [address] Visit Follow Up Social History Tobacco Use Types Packs/Day Years Used Date Smoking Tobacco: Every Day Cigarettes Alcohol Use Standard Drinks/Week Comments Yes 0 (1 standard drink = 0.6 oz pur e alcohol) ocasionally Humiliation, Afraid, Rape, and Kick questionnair e Answer Date Recorded Within the last year, have y ou been afraid of your partner or ex-partner? No 11/10/2022 Within the last year, have y ou been humiliated or emotionally abused in other ways by your partner or ex-partner? No Within the last year, have y ou been kicked, hit, slapped, or otherwise physically hurt by your partner or ex-partner? No 11/10/2022 Within the last year, have y ou been raped or forced to have any kind of sexual activity by your partner or ex-partner? No 11/10/2022 AUDIT-C Answer Date Recorded Frequency of Alcohol Consumption Never 08/04/2018 Average Number of Drinks Not on file 019 Frequency of Binge Drinking Not on file 07/11 Overall Financial Resource Strain (CARDIA) Answe r Date Recorded How hard is it for you to pa y for the very basics like food, housing, medical care, and heating? Not hard at all 11/10/2022 Hunger Vital Sign Answer Date Recorded Within the past 12 months, y ou worried that your food would run out before you got the money to buy more. Never true 11/11/19 23 Within the past 12 months, t he food you bought just didn't last and you didn't have money to get more. Never true 11/10/2022 PRAPARE - Transportation Answer Date Re corded In the past 12 months, has l ack of transportation kept you from medical appointments or from getting medications? No 03/2022 In the past 12 months, has l ack of transportation kept you from meetings, work, or from getting things needed for daily living? No 11/10/2022 Housing Stability Vital Sign Answer [...] place to sleep or slept in a long-term (including now)? No 11/10/2022 Comments No Sex and Gender Information Value Date Recorded Sex Assigned at Female 03/03/2024 1:36 PM MIDDLE SCHOOL PROFESSIONAL Legal Sex Female 4:45 PM CDT Gender Identity Not on file Sexual Orientation Not on file documented as of this encounter Functional Status * Are you deaf or do you have serious difficulty hearing Answer Date of Assessment Author Status No 11/14/2022 2:37 PM TRACEYT Dona Musa RN Active * Are you blind or do you have serious difficulty seeing, even when wearing glasses? Answer Date of Assessment Author Status No 11/14/2022 2:37 PM TRACEYT Dona Musa RN Active * Do you have serious difficulty walking or climbing stairs? Answer Date of Assessment Author Status Yes 11/14/2022 2:37 PM CDT Dona Musa RN Active * Do you have difficulty dressing or bathing? Answer Date of Assessment Author Status Yes 11/14/2022 2:37 PM CDT Dona Musa RN Active * Because of a physical, mental, or emotional condition, do you have difficulty doing errands alone such as visiting a doctor's office or shopping? Answer Date of Assessment Author Status Yes 11/14/2022 2:37 PM CDT Dona Musa RN Active documented as of this encounter Mental Status * Because of a physical, mental, or emotional condition, do you have serious difficulty concentrating, remembering, or making decisions? Answer Entry Date Author Status No 11/14/2022 2:37 PM CDT Dona Musa RN Active documented in this encounter Plan of Treatment Upcoming Encounters Date Type Department Care Team (Late st Contact Info) Description 08/23/2024 9:15 AM CDT Appointment [facility] [address] [place] [address] Kar Yun, PT [address] [place] [address] Rashi Schofield Jr., DO [address] [place] [phone] Reema Alfred, GROCERY CLERK STOCKING 08/25/2024 9:30 AM CDT Appointment [facility] [address] [place] [address] Kar Yun, PT [address] [place] [address] Rashi Schofield Jr., DO [address] [place] [phone] 01/17/2025 9:30 AM MIDDLE SCHOOL PROFESSIONAL Office Visit [facility] [place] [address] Chauncey Johnson MD [address] [address] documented as of this encounter Visit Diagnoses Not on filedocumented in this encounter Care Teams University Administrator Relationship Specialty Start Date End Date Fernando Snider MD [address] [place] [address] PCP - General INTERNAL MEDICINE 08/04/18 Chauncey Johnson MD [id number] [place] [address] Physician INTERVENTIONAL CARDIOLOGY 01/06/24 Rashi Schofield Jr., DO [address] [place] [address] Physician ORTHOPAEDIC SURGERY 01/08/24 Rashi Schofield Jr., DO [address] [place] [phone] Physician ORTHOPAEDIC SURGERY 01/15/24 documented as of this encounter
--- OUTSIDE RECORDS SUMMARY | 2024-08-19 13:01 | XMS_ITS | Encounter Summary ---
Author Organization [facility] Address [facility] [place] [address] Care Team Providers Care Director Career Services Name Role Phone Fernando Snider MD Primary Care Provider [phone] Chauncey Johnson MD Unavailable [phone] Chandu Matthews DO, George V Unavailable [phone] Chandu Matthews DO, George V Unavailable [phone] Encounter Details Date Type Department Care Team (Late Contact Info) Description 08/01/2022 LiveActionhart Message Enc [facility] [address] [place] [address] Jarvis Jameson III, MD [address] [place] [address] Visit Follow Up Social History [...] Sex Assigned at Female 03/03/2024 1:36 PM PATCHER BOWLING BALL Legal Sex Female 4:45 PM CDT Gender Identity Not on file Sexual Orientation Not on file documented as of this encounter Plan of Treatment Upcoming Encounters Date Type Department Care Team (Late Contact Info) Description 08/23/2024 9:15 AM CDT Appointment [facility] [address] [place] [address] Kar Yun, PT [address] [place] [address] Rashi Schofield Jr., DO [address] [place] [address] Reema Alfred, CORRESPONDENCE SCHOOL TEACHER 08/25/2024 9:30 AM CDT Appointment [facility] [address] [place] [address] Kar Yun, PT [address] [place] [address] Rashi Schofield Jr., DO [address] [place] [address] 01/17/2025 9:30 AM PATCHER BOWLING BALL Office Visit [facility] [place] [address] Chauncey Johnson MD [address] [id number] documented as of this encounter Visit Diagnoses Not on filedocumented in this encounter Care Teams Director Career Services Relationship Specialty Start Date End Date Fernando Snider MD [address] [place] [phone] PCP - General INTERNAL MEDICINE 08/04/18 Chauncey Johnson MD [address] [facility] [address] [address] Physician INTERVENTIONAL CARDIOLOGY 01/06/24 Rashi Schofield Jr., DO [address] [place] [address] Physician ORTHOPAEDIC SURGERY 01/08/24 Rashi Schofield Jr., DO [address] [place] [address] Physician ORTHOPAEDIC SURGERY 01/15/24 documented as of this encounter
--- OUTSIDE RECORDS SUMMARY | 2024-08-19 13:01 | XMS_ITS | Encounter Summary ---
Author Organization [facility] Address [place] [address] Care Team Providers Care Kids Club Attendant Name Role Phone Fernando Snider MD Primary Care Provider [phone] Chauncey Johnson MD Unavailable [phone] Chandu Matthews DO, George V Unavailable [phone] Chandu Matthews DO, George V Unavailable [phone] Reason for Visit * Reason Comments Knee Pain * Physical Medicine (Routine) - Authorized Specialty Diagnoses / Procedures Referred By Aida salazar Referred To Contact PHYSICAL THERAPY Diagnoses Orthopedic aftercare Aftercare following left knee joint replacement surgery Procedures OFFICE/OUTPATIENT NEW LOW MDM 30-44 MINUTES OFFICE/OUTPT VISIT,NEW,LEVL IV OFFICE/OUTPT VISIT,NEW,LEVL V OFFICE/OUTPT VISIT,EST,LEVL III OFFICE/OUTPT VISIT,EST,LEVL IV OFFICE/OUTPT VISIT,EST,LEVL V Rashi Schofield Jr., DO [address] [place] [address] Phone: tel: fax: Referral ID Status Reason Start Date Expiration Date Visits Requested Visits Authorized [id number] Authorized Physical Therapy 04/04/2024 30 30 Encounter Details Date Type Department Care Team (Late st Contact Info) Description 08/18/2024 1:45 PM CDT Hospital Encounter [facility] [address] [place] [address] Kar Yun, PT [address] [place] [address] Rashi Schofield Jr., DO [address] [place] [address] Knee Pain Social History Tobacco Use Types Packs/Day Years Used Date Smoking Tobacco: Every Day Cigarettes Smokeless Tobacco: Never Alcohol Use Standard Drinks/Week Comments Yes 5 [...] materials from doctor or pharmacy Never 04/12/2024 [facility] Utilities Answer Date Recorded In the past 12 months has [facility] [employer], oil, or water [employer] threatened to shut off services in your [...] place to sleep or slept in a nursing home (including now)? No 11/10/2022 Housing Stability [...] any time in the past 12 m [facility], were you homeless or living in a nursing home (including now)? No 06/11/2023 Comments No Sex and Gender Information Value Date Recorded Sex Assigned at Female 03/03/2024 1:36 PM GRADUATE INTERN Legal Sex Female 4:45 PM CDT Gender Identity Not on file Sexual Orientation Not on file documented as of this encounter Functional Status * Are you deaf or do you have serious difficulty hearing Answer Date of Assessment Author Status No 06/11/2023 1:09 PM CDT Tiffani Rodriguez RN Active * Are you blind or do you have serious difficulty seeing, even when wearing glasses? Answer Date of Assessment Author Status No 06/11/2023 1:09 PM CDT Tiffani Rodriguez RN Active * Do you have serious difficulty walking or climbing stairs? Answer Date of Assessment Author Status Yes 06/11/2023 1:09 PM CDT Tiffani Rodriguez RN Active * Do you have difficulty dressing or bathing? Answer Date of Assessment Author Status Yes 06/11/2023 1:09 PM CDT Tiffani Rodriguez RN Active * Because of a physical, mental, or emotional condition, do you have difficulty doing errands alone such as visiting a doctor's office or shopping? Answer Date of Assessment Author Status No 06/11/2023 1:09 PM CDT Tiffani Rodriguez RN Active documented as of this encounter Mental Status * Because of a physical, mental, or emotional condition, do you have serious difficulty concentrating, remembering, or making decisions? Answer Entry Date Author Status No 06/11/2023 1:09 PM CDT Tiffani Rodriguez RN Active documented in this encounter Plan of Treatment Upcoming Encounters Date Type Department Care Team (Late st Contact Info) Description 08/23/2024 9:15 AM CDT Appointment [facility] [address] [place] [address] Kar Yun, PT [address] [place] [address] Rashi Schofield Jr., DO [address] [place] [phone] Reema Alfred, JANA 08/25/2024 9:30 AM CDT Appointment [facility] [address] [place] [address] Kar Yun, PT [address] [place] [address] Rashi Schofield Jr., DO [address] [place] [phone] 01/17/2025 9:30 AM GRADUATE INTERN Office Visit [facility] [place] [phone] Chauncey Johnson MD [address] [facility] [address] [place] [address] documented as of this encounter Visit Diagnoses Diagnosis History of total left knee replacement- Primary documented in this encounter Care Teams Kids Club Attendant Relationship Specialty Start Date End Date Fernando Snider MD [address] [place] [phone] PCP - General INTERNAL MEDICINE 08/04/18 Chauncey Johnson MD [address] [place] [address] Physician INTERVENTIONAL CARDIOLOGY 01/06/24 Rashi Schofeild Jr., [address] [place] [address] Physician ORTHOPAEDIC SURGERY 01/08/24 Rashi Schofield Jr., [address] [place] [phone] Physician ORTHOPAEDIC SURGERY 01/15/24 documented as of this encounter
--- OUTSIDE RECORDS SUMMARY | 2024-08-19 13:01 | XMS_ITS | Encounter Summary ---
Author Organization [facility] Address [facility] [place] [address] Care Team Providers Care Day Care Center Director Name Role Phone Fernando Snider MD Primary Care Provider [phone] Chauncey Johnson MD Unavailable [phone] Chandu Matthews DO, George V Unavailable [phone] Chandu Matthews DO, George V Unavailable [phone] Encounter Details Date Type Department Care Team (Latest Contact Info) Description 08/18/2024 Travel Social History Tobacco Use Types Packs/Day Years [...] materials from doctor or pharmacy Never 04/12/2024 [facility] Utilities Answer Date Recorded In the past 12 months has e [employer], gas, oil, or water [employer] threatened to shut off services in your [...] place to sleep or slept in a assisted (including now)? No 11/10/2022 Housing Stability Vital Sign Answer Lincoln e Recorded In the last 12 months, was t here a time when you were not able to pay the mortgage or rent on time? No 06/11/2023 In the past 12 months, how m any times have you moved where you were living? 1 06/11/2023 At any time in the past 12 m [facility], were you homeless or living in a assisted (including now)? No 06/11/2023 Comments No Sex and Gender Information Value Date Recorded Sex Assigned at Female 03/03/2024 1:36 PM CROP NUTRITION SCIENTIST Legal Sex Female 4:45 PM CDT Gender [...] Assessment Author Status Yes 06/11/2023 1:09 PM TRACEYT Tiffani Rodriguez RN Active * Do you [...] Info) Description 08/23/2024 9:15 AM CDT Appointment [facility] [address] [place], [place] [phone] Kar Yun, PT [address] [place] [address] Rashi Schofield Jr., DO [address] [place] [address] Reema Alfred PTA 08/25/2024 9:30 AM CDT Appointment [facility] [address] [place] [address] Kar Yun, PT [address] [place] [address] Rashi Schofield Jr., DO [address] [place] [address] 01/17/2025 9:30 AM CROP NUTRITION SCIENTIST Office Visit [facility] [place] [address] Chauncey Johnson MD [address] [address] documented as of this encounter Visit Diagnoses Not on filedocumented in this encounter Care Teams Day Care Center Director Relationship Specialty Start Date End Date Fernando Snider MD [address] [place] [address] PCP - General INTERNAL MEDICINE 08/04/18 Chauncey Johnson MD [address] [address] Physician INTERVENTIONAL CARDIOLOGY 01/06/24 Rashi Schofield Jr., DO [address] [place], [place] [phone] Physician ORTHOPAEDIC SURGERY 01/08/24 Rashi Schofield Jr., DO [address] [place] [address] Physician ORTHOPAEDIC SURGERY 01/15/24 documented as of this encounter
--- OUTSIDE RECORDS SUMMARY | 2024-08-19 13:01 | XMS_ITS | Encounter Summary ---
Author Organization [facility] Address [facility] [place] [address] Care Team Providers Care Vacuum Plastic Forming Machine Operator Name Role Phone Fernando Snider MD Primary Care Provider [phone] Chauncey Johnson MD Unavailable [phone] Chandu Matthews DO, George V Unavailable [phone] Chandu Matthews DO, George V Unavailable [phone] Reason for Visit * Reason Onset Date Comments Advise 12/08/2023 Encounter Details Date Type Department Care Team (Late st Contact Info) Description 12/08/2023 Telephone [facility] Home Care [facility] [address] [place] [address] Rashi Schofield Jr., DO [address] [place] [address] Advise Social History Tobacco Use Types Packs/Day Years Used Date Smoking Tobacco: Every Day Cigarettes Alcohol Use Standard Drinks/Week Comments Yes 0 (1 standard drink = 0.6 oz pur e alcohol) ocasionally [facility] Utilities Answer Date Recorded In the past 12 months has e electric, gas, oil, or water company threatened to shut off services in your [...] place to sleep or slept in a residential (including now)? No 11/10/2022 Housing Stability Vital Sign Answer Lincoln e Recorded In the last 12 months, was t here a time when you were not able to pay the mortgage or rent on time? No 06/11/2023 In the past 12 months, how m any times have you moved where you were living? 1 06/11/2023 At any time in the past 12 m [facility], were you homeless or living in a residential (including now)? No 06/11/2023 Comments No Sex and Gender Information Value Date Recorded Sex Assigned at Female 03/03/2024 1:36 PM HOSPITAL SCIENTIST Legal Sex Female 4:45 PM CDT [...] Assessment Author Status No 06/11/2023 1:09 PM TRACEYT Tiffani Rodriguez RN [...] Date Author Status No 06/11/2023 1:09 PM TRACEYT Tiffani Rodriguez RN Active documented in this encounter Progress Notes * Radha Beckham - 12/08/2023 12:30 PM CDTSummary: home health Jourdan, We received the home health referral for Bernie. We will accept and add her to our schedule. Thank you Radha [facility] Home Care documented in this encounter Plan of Treatment Upcoming Encounters Date Type Department Care Team (Late st Contact Info) Description 08/23/2024 9:15 AM CDT Appointment [facility] [address] [place] [address] Kar Yun, PT [address] [place] [address] Rashi Schofield Jr., DO [address] [place] [phone] Reema Alfred, JANA 08/25/2024 9:30 AM CDT Appointment [facility] [address] [place] [address] Kar Yun, PT [address] [place] [address] Rashi Schofield Jr., DO [address] [place] [phone] 01/17/2025 9:30 AM HOSPITAL SCIENTIST Office Visit [facility] [place] [phone] Chauncey Johnson MD [address] [address] documented as of this encounter Visit Diagnoses Not on filedocumented in this encounter Care Teams Vacuum Plastic Forming Machine Operator Relationship Specialty Start Date End Date Fernando Snider MD [address] [place] [phone] PCP - General INTERNAL MEDICINE 08/04/18 Chauncey Johnson MD [address] [facility] [address] [address] Physician INTERVENTIONAL CARDIOLOGY 01/06/24 Rashi Schofield Jr., [address] [place], [place] [phone] Physician ORTHOPAEDIC SURGERY 01/08/24 Rashi Schofield Jr., DO [address] [place] [address] Physician ORTHOPAEDIC SURGERY 01/15/24 documented as of this encounter
[2024-08-19 13:10] VITALS: BP 121/89; PULSE 100; RESP 20; TEMP 36.6; O2SAT 97
[2024-08-19] MEDS: ZOLEDRONIC ACID 5 MG/100 ML 100 ML 400 MG IVPB (13:58)
[2024-08-19 14:00] VITALS: BMI 40.7
[2024-08-19 14:19] VITALS: BP 120/89; PULSE 89; RESP 18; TEMP 36.1; O2SAT 97
--- NOTE | 2024-08-19 15:00 | PC.NURSE ---
IV access to left forearm discontinued after infusion. Site WNL, no redness or swelling. Patient tolerated well.
== END 2024-08-19 12:52 | disposition home or self-care (01) ==
PROVIDERS: PCP Internal Medicine; Visit Provider Nurse Practitioner Family
DX: M81.0 Age-related osteoporosis without current pathological fracture (principal); R32 Unspecified urinary incontinence; Z68.41 Body mass index [BMI] 40.0-44.9, adult
CPT/HCPCS: 96365; J3489

== ENCOUNTER 2025-01-09 14:02 | Outpatient (CLI) | payer OTHER, SELFPAY ==
[2025-01-09 14:41] LABS: Hematocrit 43.7 % (35.0-49.0); Hemoglobin 13.9 g/dL (12.0-15.0); Mean Corpuscular HGB Conc 31.8 g/dL (32-36); Mean Corpuscular Hemoglobin 32.0 pg (27.0-31.0); Mean Corpuscular Volume 100.7 fL (78.0-102.0); Platelet Count Result 411 K/mm3 (150-420); Red Blood Count 4.34 M/mm3 (4.20-5.40); White Blood Count 9.8 K/mm3 (4.8-10.8)
[2025-01-09 14:47] LABS: Appearance Urine Clear (Clear); Glucose Urine UA Negative (Negative); Leukocyte Esterase Ur 1+ (Negative); Nitrate Urine Positive (Negative); Specific Grav Ur >= 1.030 (1.010-1.020)
[2025-01-09 14:56] LABS: Alanine Aminotransferase 19 U/L (6-35); Albumin Level 3.9 g/dL (3.5-5.1); Alkaline Phosphatase 90 U/L (38-126); Anion Gap 8 mmol/L (4-12); Aspartate Amino Transferase 31 U/L (14-36); Bilirubin,Total 0.4 mg/dL (0.2-1.3); Blood Urea Nitrogen 17 mg/dL (7-17); CRP 2.0 mg/dL (<1.0); Calcium 9.7 mg/dL (8.4-10.2); Carbon Dioxide 26 mmol/L (22-30); Chloride 107 mmol/L (98-107); Estimated Glomerular Filt Rate 51; Glucose 106 mg/dL (65-110); Osmolality Calculated 293 mOsm/kg (285-295); Potassium 4.3 mmol/L (3.4-5.0); Sodium 141 mmol/L (137-145); Total Protein 6.7 g/dL (6.3-8.2)
[2025-01-09 14:57] LABS: Add Urine Microscopic? YES
== END 2025-01-09 14:03 | disposition home or self-care (01) ==
PROVIDERS: PCP Internal Medicine; Visit Provider Nurse Practitioner Family
DX: N12 Tubulo-interstitial nephritis, not specified as acute or chronic (principal); N20.0 Calculus of kidney
CPT/HCPCS: 36415; 80053; 81001; 83605; 85027; 85652; 86140